=== PATIENT | female | born 1985 | race Caucasian/White ===

== ENCOUNTER 2025-01-04 08:40 | Emergency (ER) | payer BC ==
[2025-01-04 09:00] LABS: BASOPHILS PERCENT AUTO 0.4 % (0.2-1.2); EOSINOPHILS PERCENT AUTO 0.5 % (0.0-4.0); HEMATOCRIT 39.6 % (33.0-47.0); HEMOGLOBIN 13.7 g/dL (12.0-16.0); IMMATURE GRAN ABSOLUTE AUTO 0.01 x10^3/uL (0.00-0.07); LYMPHOCYTES ABSOLUTE AUTO 1.5 x10^3/uL (1.0-4.8); LYMPHOCYTES PERCENT AUTO 19.4 % (25.0-50.0); MEAN CORPUSCULAR HGB CONC 34.6 g/dL (32.0-36.0); MEAN CORPUSCULAR VOLUME 86.7 fL (78.0-93.0); MONOCYTES ABSOLUTE AUTO 0.4 x10^3/uL (0.0-0.8); NEUTROPHILS ABSOLUTE AUTO 5.9 x10^3/uL (1.8-7.7); NEUTROPHILS PERCENT AUTO 74.6 % (50.0-80.0); PLATELET COUNT,PLT 312 x10^3/uL (130-400); RED BLOOD CELL COUNT 4.57 x10^6/uL (4.00-5.50); WHITE BLOOD CELL COUNT,WBC 7.9 x10^3/uL (4.0-10.0)
[2025-01-04] MEDS: ALPRAZolam 0.25 MG Tab PO ONE (09:00)
[2025-01-04 09:24] LABS: A/G RATIO 1.24; ALANINE AMINOTRANSFERASE,ALT 15 U/L (14-59); ALBUMIN 4.2 g/dL (3.4-5.0); ALKALINE PHOSPHATASE 70 U/L (46-116); BILIRUBIN TOTAL 0.7 mg/dL (0.2-1.0); BLOOD UREA NITROGEN,BUN 8 mg/dL (7-18); CALCIUM 9.5 mg/dL (8.5-10.1); CARBON DIOXIDE,CO2 27 mmol/L (21-32); CHLORIDE,CL 105 mmol/L (98-107); CREATININE 0.7 mg/dL (0.55-1.02); EST CRCL DRUG DOSING (CG) 103.01 mL/min; GLUCOSE RANDOM 125 mg/dL (70-99); POTASSIUM,K 3.4 mmol/L (3.5-5.1); PROTEIN TOTAL,TP 7.6 g/dL (6.4-8.2); SODIUM,NA 141 mmol/L (136-145); TSH ULTRASENSITIVE 0.872 uIU/mL (0.358-3.74)
[2025-01-04 09:25] LABS: ANION GAP 12.4 mmol/L (5-15); ESTIMATED GFR 114 mL/min (>=60)
[2025-01-04 09:36] LABS: ASPARTATE AMNIOTRANSFERASE,AST < 10 U/L (15-37)
== END 2025-01-04 09:45 | disposition home or self-care (01) ==
LOC: VM.ED 08:40
DX: F41.9 Anxiety disorder, unspecified (principal); Z79.899 Other long term (current) drug therapy
CPT/HCPCS: 36415; 80053; 84443; 85025; 93005; 93010; 99284; 99285; A9270-GY